=== PATIENT | male | born 1995 | race Caucasian/White ===

== ENCOUNTER 2023-04-01 20:20 | Emergency (ER) | payer OTHER ==
[~2023-04-01] VITALS: Ht 177.8 cm; Wt 78.0 kg
[2023-04-01 20:28] VITALS: BP 125/72
--- NOTE | 2023-04-01 20:56 | NUR ---
Patient discharged to home in stable condition. Written and verbal after care instructions given. Patient verbalizes understanding of instruction.
== END 2023-04-01 20:57 | disposition home or self-care (01) ==
LOC: ER 20:30
DX: T23.141A Burn of first degree of multiple right fingers (nail), including thumb, initial encounter (principal); J45.909 Unspecified asthma, uncomplicated; X19.XXXA Contact with other heat and hot substances, initial encounter; Y93.89 Activity, other specified; Y92.89 Other specified places as the place of occurrence of the external cause; Y99.0 Civilian activity done for income or pay